=== PATIENT | female | born 1985 | race Caucasian/White ===

== ENCOUNTER 2016-12-27 14:08 | Emergency (ER) | payer MEDICAID ==
[~2016-12-27] VITALS: Ht 170.2 cm; Wt 63.6 kg
[2016-12-27] MEDS ORDERED: ACETAMINOPHEN 160 MG/5 ML SUSPENSION UDCUP PO ONE (15:30)
[2016-12-27] MEDS ORDERED: ONDANSETRON HCL 4 MG TABLET PO ONE (15:30)
[2016-12-27] MEDS ORDERED: ACETAMINOPHEN 325 MG TABLET PO ONE (15:45)
[2016-12-27 18:40] VITALS: BP 132/75
== END 2016-12-27 19:18 | disposition home or self-care (01) ==
LOC: EDUNIT# 14:08 → EMS 14:11
DX: S06.0X9A Concussion with loss of consciousness of unspecified duration, initial encounter (principal); F15.90 Other stimulant use, unspecified, uncomplicated; F12.90 Cannabis use, unspecified, uncomplicated; Z88.5 Allergy status to narcotic agent; W22.8XXA Striking against or struck by other objects, initial encounter; Y93.89 Activity, other specified; Y92.89 Other specified places as the place of occurrence of the external cause; Y99.8 Other external cause status
CPT/HCPCS: 70450; 73630; 81025; 99284; Q0162